=== PATIENT | female | born 1975 | race African-American/Black ===

== ENCOUNTER 2021-08-07 15:26 | Outpatient (CLI) | payer BC ==
[2021-08-07 16:54] LABS: Mean Corpuscular HGB CONC 32.5 g/dL (32.0-36.0); Mean Corpuscular Hemoglobin 28.3 pg (27.0-33.0); Mean Corpuscular Volume 87.1 fl (81.6-98.3); Mean Platelet Volume 10.8 fl (7.4-10.4); Platelet Count 362 10x3/uL (150-450); RBC Distribution Width 14.2 % (11.5-14.5); Red Blood Cell (RBC) Count 4.59 10x6/uL (3.90-5.03); White Blood Cell (WBC) Count 11.8 10x3/uL (3.5-10.5)
[2021-08-07 17:10] LABS: BHCG - Serum Negative (NEGATIVE); Pregs Control Background? CLEAR/WHITE (CLR/WHITE); Pregs Control Bar Appear? YES (CONTROL BAR)
[2021-08-08 11:53] LABS: SARS-CoV-2 PCR by NAA Not Detected (NotDetected)
== END 2021-08-07 15:27 | disposition home or self-care (01) ==
LOC: CSHLAB 15:26
PROVIDERS: ATTEND Obstetrics & Gynecology
DX: Z01.812 Encounter for preprocedural laboratory examination (principal); Z20.822 Contact with and (suspected) exposure to COVID-19
CPT/HCPCS: 84703; 85027; 86850; 86900; 86901; U0003; U0005

== ENCOUNTER 2021-08-12 10:41 | Observation (INO) | payer BC ==
[2021-08-07 15:10] VITALS: BMI 33.8
[2021-08-07 16:54] LABS: Mean Corpuscular HGB CONC 32.5 g/dL (32.0-36.0); Mean Corpuscular Hemoglobin 28.3 pg (27.0-33.0); Mean Corpuscular Volume 87.1 fl (81.6-98.3); Mean Platelet Volume 10.8 fl (7.4-10.4); Platelet Count 362 10x3/uL (150-450); RBC Distribution Width 14.2 % (11.5-14.5); Red Blood Cell (RBC) Count 4.59 10x6/uL (3.90-5.03); White Blood Cell (WBC) Count 11.8 10x3/uL (3.5-10.5)
[2021-08-07 17:10] LABS: BHCG - Serum Negative (NEGATIVE); Pregs Control Background? CLEAR/WHITE (CLR/WHITE); Pregs Control Bar Appear? YES (CONTROL BAR)
[2021-08-08 11:53] LABS: SARS-CoV-2 PCR by NAA Not Detected (NotDetected)
[2021-08-12] MEDS ORDERED: Famotidine/PF 20 mg/2ml Vial ONE ×2 (11:29→13:01)
[2021-08-12] MEDS ORDERED: Lidocaine 1% MPF 2 ML VIAL ONE (11:29)
[2021-08-12] MEDS ORDERED: CeleCOXIB 100 MG CAP ONE (11:29)
[2021-08-12] MEDS ORDERED: Gabapentin 300 MG CAP ONE (11:29)
[2021-08-12] MEDS ORDERED: Bupivacaine PF 0.5% 30 ML VIAL ONE (12:48)
[2021-08-12] MEDS ORDERED: EPINEPHrine 1 MG/ML AMP ONE (12:48)
[2021-08-12] MEDS ORDERED: SUGAMMADEX SODIUM 200 MG/2 ML VIAL ONE (13:01)
[2021-08-12] MEDS ORDERED: Metoclopramide HCl 10 MG/2 ML VIAL ONE (13:03)
[2021-08-12] MEDS ORDERED: Lidocaine 2% PF 5 ML VIAL ONE (13:03)
[2021-08-12] MEDS ORDERED: Ondansetron PF 4 MG/2 ML Vial ONE ×2 (13:03→13:41)
[2021-08-12] MEDS ORDERED: PROPOFOL 20 ML ONE ×2 (13:03→15:50)
[2021-08-12] MEDS ORDERED: Dexamethasone 4 mg/ml Vial ONE (13:03)
[2021-08-12] MEDS ORDERED: Rocuronium Bromide 10 MG/ML (10ML VIAL) ONE (13:06)
[2021-08-12] MEDS ORDERED: ceFAZolin 2 GM/Dextrose 50 ML IVPB ONE (13:06)
[2021-08-12] MEDS ORDERED: Fentanyl 100 MCG/2 ML VIAL ONE ×2 (13:07→15:50)
[2021-08-12] MEDS ORDERED: Ketorolac Tromethamine 30 MG/ML VIAL ONE (13:41)
[2021-08-12] MEDS ORDERED: Metoprolol Tartrate 5 MG/5 ML VIAL ONE (14:18)
[2021-08-12] MEDS ORDERED: Zolpidem Tartrate 5 MG TAB PO PRN (18:11)
[2021-08-12] MEDS ORDERED: Ondansetron PF 4 MG/2 ML Vial IVP PRN (18:12)
[2021-08-12] MEDS ORDERED: HYDROcodone/Acetaminophen 5/325 mg Tablet PO PRN (18:12)
[2021-08-12] MEDS ORDERED: Fentanyl 100 MCG/2 ML VIAL SLOW IVP PRN (18:14)
[2021-08-12] MEDS ORDERED: ESTRADIOL PO SCH (21:00)
[2021-08-12] MEDS ORDERED: NORETHINDRONE PO SCH (21:00)
[2021-08-12] MEDS ORDERED: [UNRECOGNIZED DRUG - OTHER] PO SCH (21:00)
[2021-08-12] MEDS: Ibuprofen 800 MG TAB PO SCH (22:00)
[2021-08-13] MEDS: HYDROcodone/Acetaminophen 5/325 mg Tablet PO PRN ×2 (00:41→08:15)
[2021-08-13] MEDS: Ibuprofen 800 MG TAB PO SCH (06:21)
[2021-08-13] MEDS ORDERED: Mometasone 100 MCG/Formoterol 5 MCG 120 PUFF INHALER INH SCH (06:30)
[2021-08-13] MEDS ORDERED: Mometasone/Formoterol 60 PUFF AER INH SCH ×2 (07:45→18:30)
[2021-08-13 07:59] VITALS: TEMP 98.5
[2021-08-13] MEDS ORDERED: Ferrous Sulfate 325 MG TAB PO SCH (08:00)
[2021-08-13] MEDS ORDERED: Amlodipine 10 MG TAB PO SCH (09:00)
[2021-08-13] MEDS ORDERED: Multivitamin W/ Minerals 1 TAB PO SCH (09:00)
[2021-08-13] MEDS ORDERED: Fluticasone Propionate Nasal Spray 16 gm Bottle NASAL SCH (09:00)
[2021-08-13 10:30] VITALS: BP 127/61
== END 2021-08-13 09:47 | disposition home or self-care (01) ==
LOC: CSHSDC 10:41 → CSHPED 18:00 → INTOOBSV 18:00
PROVIDERS: ADMIT Obstetrics & Gynecology; ATTEND Obstetrics & Gynecology
PROC: 0UT94ZZ Resection of Uterus, Percutaneous Endoscopic Approach (ICD-10-PCS; principal; 2021-08-12)
PROC: 0UT74ZZ Resection of Bilateral Fallopian Tubes, Percutaneous Endoscopic Approach (ICD-10-PCS; 2021-08-12)
DX: D25.9 Leiomyoma of uterus, unspecified (principal); N73.6 Female pelvic peritoneal adhesions (postinfective); I10 Essential (primary) hypertension; J45.909 Unspecified asthma, uncomplicated; Z79.899 Other long term (current) drug therapy; Z88.2 Allergy status to sulfonamides; Z98.51 Tubal ligation status; Z20.822 Contact with and (suspected) exposure to COVID-19
CPT/HCPCS: 84703; 85027; 86850; 86900; 86901; 88307; 96374; 96375; G0378; J0171; J0690; J1100; J1885; J2001; J2405; J2704; J2765; J3010; S0020; S0028; U0003; U0005

== ENCOUNTER 2022-10-15 08:51 | Emergency (ER) | payer OTHER, BC ==
[2022-10-15] MEDS ORDERED: Lidocaine 1% w/Epinephrine 1:200K 30 ML VIAL ONE (09:21)
[2022-10-15] MEDS ORDERED: fentaNYL 50 mcg/mL 1 mL Vial ONE (09:35)
[2022-10-15] MEDS ORDERED: Boostrix 0.5 ML (Tdap) VIAL (>/=7 yrs of age) ONE (09:37)
== END 2022-10-15 10:30 | disposition home or self-care (01) ==
LOC: CSHERS 08:51
DX: S01.81XA Laceration without foreign body of other part of head, initial encounter (principal); I10 Essential (primary) hypertension; J45.909 Unspecified asthma, uncomplicated; Z23 Encounter for immunization; V79.9XXA Bus occupant (driver) (passenger) injured in unspecified traffic accident, initial encounter
CPT/HCPCS: 12011; 70450; 90471; 90715; 96372; J3010

== ENCOUNTER 2024-11-20 14:49 | Outpatient (CLI) | payer OTHER | END 2024-11-20 14:50 | disposition home or self-care (01) | LOC: CSHDTY/OP 14:49 | PROVIDERS: ATTEND Nurse Practitioner Family | DX: E11.9 Type 2 diabetes mellitus without complications (principal) | CPT/HCPCS: 97802 ==

== ENCOUNTER 2025-01-17 14:56 | Outpatient (CLI) | payer OTHER | END 2025-01-17 14:57 | disposition home or self-care (01) | LOC: CSHDTY/OP 14:56 | PROVIDERS: ATTEND Nurse Practitioner Family | DX: Z71.3 Dietary counseling and surveillance (principal); E11.9 Type 2 diabetes mellitus without complications | CPT/HCPCS: 97802 ==

== ENCOUNTER 2025-02-27 13:28 | Outpatient (CLI) | payer OTHER | END 2025-02-27 13:29 | disposition home or self-care (01) | LOC: CSHDTY/OP 13:28 | PROVIDERS: ATTEND Nurse Practitioner Family | DX: Z71.3 Dietary counseling and surveillance (principal); E11.9 Type 2 diabetes mellitus without complications | CPT/HCPCS: 97802 ==